=== PATIENT | female | born 1960 | race Caucasian/White ===

== ENCOUNTER → 2018-09-20 | Outpatient (CLI) | payer BC, OTHER | LOC: ULTRA 14:19 | DX: D25.9 Leiomyoma of uterus, unspecified (principal) ==

== ENCOUNTER → 2019-01-05 | Outpatient (CLI) | payer BC, OTHER | LOC: RAD 12:23 | DX: M43.16 Spondylolisthesis, lumbar region (principal); M41.86 Other forms of scoliosis, lumbar region; M47.814 Spondylosis without myelopathy or radiculopathy, thoracic region ==